=== PATIENT | female | born 1960 | race African-American/Black ===

== ENCOUNTER 2021-04-01 02:40 | Inpatient (IN) | payer SELFPAY ==
[2021-04-01] MEDS ORDERED: Acetaminophen 325 MG TAB ONE (03:21)
[2021-04-01 04:16] LABS: Hemoglobin 13.7 g/dL (12.0-16.0); Mean Corpuscular HGB CONC 32.3 g/dL (32.0-36.0); Mean Corpuscular Hemoglobin 29.8 pg (27.0-31.0); Mean Platelet Volume 7.5 fL (7.4-10.4); Platelet Count 184 thou/uL (130-400); RBC Distribution Width 12.1 % (11.5-14.5); White Blood Cell (WBC) Count 2.8 thou/uL (4.8-10.8)
[2021-04-01 04:38] LABS: ALT (SGPT) 18 U/L (8-55); AST (SGOT) 27 U/L (5-34); Albumin 3.8 g/dL (3.5-5.0); Alkaline Phosphatase 80 U/L (40-110); Anion Gap 15 mmol/L (10-20); BUN (Urea Nitrogen) 16 mg/dL (9.8-20.1); Bilirubin, Total 0.4 mg/dL (0.2-1.2); Calc. Creatinine Clearance 0 mL/min (70-130); Calcium 8.5 mg/dL (7.8-10.44); Carbon Dioxide 24 mmol/L (22-29); Chloride 99 mmol/L (98-107); Globulin 3.4 g/dL (2.4-3.5); Glucose 122 mg/dL (70-105); Lipase 16 U/L (8-78); Protein, Total 7.2 g/dL (6.0-8.3); Sodium 135 mmol/L (136-145)
[2021-04-01 04:46] LABS: Potassium 2.6 mmol/L (3.5-5.1)
[2021-04-01 05:02] LABS: Band 13 % (5-11); Lymphocytes 18 % (21-51); MDiff Complete? YES; Monocytes 8 % (0-10); Neutrophil 61 % (42-75)
[2021-04-01] MEDS ORDERED: Potassium Chloride 20 MEQ/100 ML PREMIX BAG ONE (05:03)
[2021-04-01] MEDS ORDERED: Potassium Chloride 20 MEQ TAB ONE (05:03)
[2021-04-01] MEDS ORDERED: metroNIDAZOLE 500 MG/100 ML BAG ONE (06:46)
[2021-04-01] MEDS ORDERED: Iopamidol-370 76% 500 ML 1 ML ONE (09:10)
[2021-04-01] MEDS ORDERED: Ondansetron PF 4 MG/2 ML Vial ONE (09:16)
[2021-04-01 12:32] LABS: SARS-CoV-2 NAA Rapid Test DETECTED (NotDetected)
[2021-04-01] MEDS ORDERED: hydrALAZINE 20 MG/ML VIAL SLOW IVP PRN (12:44)
[2021-04-01] MEDS ORDERED: Ondansetron ODT 4 MG TAB PO PRN (12:44)
[2021-04-01] MEDS ORDERED: Ondansetron PF 4 MG/2 ML Vial IVP PRN (12:44)
[2021-04-01] MEDS ORDERED: Ibuprofen 200 MG TAB PO PRN (12:44)
[2021-04-01] MEDS ORDERED: Benzonatate 100 MG CAP PO PRN (12:44)
[2021-04-01] MEDS ORDERED: Loperamide HCl 2 MG CAP PO PRN ×2 (12:44)
[2021-04-01 15:05] VITALS: BMI 28.2
[2021-04-01 17:38] LABS: Potassium 3.3 mmol/L (3.5-5.1)
[2021-04-01] MEDS: Acetaminophen 500 MG TAB PO PRN (20:06)
[2021-04-01] MEDS ORDERED: Electrolyte Replacement Protocol 1 EACH FS SCH (20:45)
[2021-04-01] MEDS: NS 0.9% w/ 40 MEQ KCL 1,000 ML IV SCH (21:16)
[2021-04-02] MEDS: NS 0.9% w/ 40 MEQ KCL 1,000 ML IV SCH ×2 (05:18→16:32)
[2021-04-02] MEDS: Acetaminophen 500 MG TAB PO PRN (05:30)
[2021-04-02] MEDS ORDERED: Potassium Bicarbonate/Cit Ac 20 MEQ TAB PO SCH (07:45)
[2021-04-02 08:38] LABS: #Lymphocytes 0.7 thou/uL (1.20-3.40); #Monocytes 0.3 thou/uL (0.11-0.59); #Neutrophils 2.2 thou/uL (1.40-6.50); %Eosinophils 0.1 % (0.0-10.0); %Lymphocytes 22.5 % (21.0-51.0); %Monocytes 7.7 % (0.0-10.0); %Neutrophils 69.8 % (42.0-75.0); Hemoglobin 12.6 g/dL (12.0-16.0); Mean Corpuscular HGB CONC 32.2 g/dL (32.0-36.0); Mean Corpuscular Volume 92.9 fL (78.0-98.0); Mean Platelet Volume 7.8 fL (7.4-10.4); Platelet Count 147 thou/uL (130-400); RBC Distribution Width 12.2 % (11.5-14.5); Red Blood Cell (RBC) Count 4.21 mill/uL (4.20-5.40); White Blood Cell (WBC) Count 3.2 thou/uL (4.8-10.8)
[2021-04-02 08:59] LABS: ALT (SGPT) 14 U/L (8-55); AST (SGOT) 23 U/L (5-34); Albumin 3.3 g/dL (3.5-5.0); Alkaline Phosphatase 63 U/L (40-110); Anion Gap 11 mmol/L (10-20); BUN (Urea Nitrogen) 11 mg/dL (9.8-20.1); Bilirubin, Total 0.3 mg/dL (0.2-1.2); CRP (Inflammatory) 0.58 mg/dL (= or < 0.5); Calc. Creatinine Clearance 96 mL/min (70-130); Calcium 7.9 mg/dL (7.8-10.44); Carbon Dioxide 22 mmol/L (22-29); Chloride 108 mmol/L (98-107); Globulin 3.1 g/dL (2.4-3.5); Glucose 95 mg/dL (70-105); Magnesium 2.1 mg/dL (1.6-2.6); Potassium 3.8 mmol/L (3.5-5.1); Protein, Total 6.4 g/dL (6.0-8.3); Sodium 137 mmol/L (136-145)
[2021-04-02] MEDS ORDERED: Zinc Sulfate 220 MG CAP PO SCH (09:00)
[2021-04-02] MEDS ORDERED: Cholecalciferol 1,000 UNITS (25 MCG) TAB PO SCH (09:00)
[2021-04-02] MEDS ORDERED: Ascorbic Acid 500 mg Chewable Tablet PO SCH (09:00)
[2021-04-02 09:17] LABS: Phosphorus 1.6 mg/dL (2.3-4.7)
[2021-04-02] MEDS ORDERED: Potassium Phosphate 30 MMOL in Sodium Chloride 0.9% 250 ML 250 ML IVPB SCH (10:30)
[2021-04-02 11:21] VITALS: TEMP 98.4
[2021-04-02 16:18] VITALS: BP 127/73
== END 2021-04-02 17:12 | disposition left against medical advice (07) | DRG 178 ==
LOC: ERS 02:40 → ERHOLD 08:33 → T4-A 14:09
PROVIDERS: ADMIT Internal Medicine; ATTEND Internal Medicine
PROC: 8E0ZXY6 Isolation (ICD-10-PCS; principal; 2021-04-01)
DX: U07.1 COVID-19 (principal); E87.1 Hypo-osmolality and hyponatremia; E87.6 Hypokalemia; I10 Essential (primary) hypertension; E86.0 Dehydration; E83.39 Other disorders of phosphorus metabolism; N85.2 Hypertrophy of uterus; D70.9 Neutropenia, unspecified; D25.9 Leiomyoma of uterus, unspecified; Z79.899 Other long term (current) drug therapy; Z90.89 Acquired absence of other organs; Z98.890 Other specified postprocedural states; Z87.891 Personal history of nicotine dependence; Z53.29 Procedure and treatment not carried out because of patient's decision for other reasons
CPT/HCPCS: 36415; 74177; 80053; 82728; 83605; 83690; 83735; 84100; 85025; 86140; 87040; 93005; J1956; J2405; J3480; J7050; Q9967; U0002; U0005

== ENCOUNTER 2021-04-18 10:12 | Emergency (ER) | payer SELFPAY ==
[2021-04-18 19:22] LABS: SARS-CoV-2 PCR by NAA Not Detected (NotDetected)
== END 2021-04-18 10:23 | disposition home or self-care (01) ==
LOC: ERS 10:12
DX: Z02.89 Encounter for other administrative examinations (principal); Z20.822 Contact with and (suspected) exposure to COVID-19; I10 Essential (primary) hypertension; Z79.899 Other long term (current) drug therapy; Z87.891 Personal history of nicotine dependence
CPT/HCPCS: 99283; U0003; U0005

== ENCOUNTER 2021-08-23 19:10 | Emergency (ER) | payer BC | END 2021-08-23 19:22 | disposition home or self-care (01) | LOC: ERS 19:10 | DX: R51.9 Headache, unspecified (principal) | CPT/HCPCS: 99281 ==

== ENCOUNTER 2023-05-19 09:46 | Outpatient (CLI) | payer OTHER | END 2023-05-19 09:47 | disposition home or self-care (01) | LOC: RAD 09:46 | PROVIDERS: ATTEND Anesthesiology | DX: Z02.71 Encounter for disability determination (principal); M17.12 Unilateral primary osteoarthritis, left knee ==